=== PATIENT | male | born 1940 | race Caucasian/White ===

== ENCOUNTER 2018-11-11 16:49 | Outpatient (CLI) | payer MEDICARE, OTHER ==
--- NOTE | 2018-11-12 15:36 | Ultrasound Report ---
Reason: URGENCY OF URINATION Procedure Date: 11/11/2018 Accession Number: [id number] / [id number] Procedure: US - Bladder CPT Code: FULL RESULT: EXAM: PELVIS ULTRASOUND, LIMITED EXAM DATE: 11/11/2018 05:17 PM. CLINICAL HISTORY: URGENCY OF URINATION. COMPARISON: None. TECHNIQUE: Real-time scanning was performed with static images obtained. Region of interest: Urinary bladder. FINDINGS: Mildly distended urinary bladder. Bladder contour is grossly unremarkable. Prevoid bladder volume is 89 cc. Postvoid bladder volume is 46 cc. Prostate gland measures 32 x 32 x 37 mm (20 cc). IMPRESSION: 1. Small volume post void bladder residual. RADIA
== END 2018-11-11 16:50 | disposition home or self-care (01) ==
LOC: DI 16:49
PROVIDERS: ATTEND Internal Medicine
DX: R39.15 Urgency of urination (principal)
CPT/HCPCS: 76857

== ENCOUNTER 2022-06-14 19:54 | Emergency (ER) | payer MEDICARE, OTHER ==
[2022-06-14 20:17] VITALS: BP 152/74
== END 2022-06-14 21:16 | disposition left against medical advice (07) ==
LOC: ED 19:54
DX: Z53.21 Procedure and treatment not carried out due to patient leaving prior to being seen by health care provider (principal)
CPT/HCPCS: 99281

== ENCOUNTER 2023-11-14 07:42 | Outpatient (CLI) | payer MEDICARE, OTHER ==
[~2023-11-14 07:42] MED LIST: GADOTERATE MEGLUMINE 10 MMOL/20 ML VIAL ONE
--- NOTE | 2023-11-14 14:31 | MRI Report ---
PROCEDURE: PELVIS W/WO INDICATIONS: RISING PSA CONTRAST: Not listed. TECHNIQUE: Coronal ultra fast SE, axial T1 FSE with fat saturation, 3-plane nonbreath-hold T2 FSE. After the ad ministration of contrast, dynamic axial, delayed axial and coronal ultra fast GE or 2-D spoiled GE wi th fat saturation through the pelvis. Optional diffusion weighted imaging and ADC may be performed. COMPARISON: None. FINDINGS: Image quality: Diffusion weighted and dynamic contrast enhanced images are diagnostic. Prostate: Gland size is 5.4 x 4.9 x 4.5 cm; ellipsoid gland volume is 62 mL. Prostate lesions: Lesion 1: Location: Anterior transition zone of the base to mid gland, on axial series 5, image 7 and sagittal series 7, image 12. Size: 2.2 x 1.5 cm. T2W signal: Hypointense, nonencapsulated DWI signal: Markedly hyperintense ADC signal: Markedly hypointense Enhancement: Yes Extracapsular extension: Broad-based capsular contact with probable extension into the anterior fibro muscular stroma. No neurovascular involvement. PI-RADS score: 5 Lesion 2: Location: Right posterior transition zone, mid gland to apex, on axial series 5, image 10 and coronal series 6, image 12. Size: 1.5 x 1.3 cm. T2W signal: Hypointense, partially encapsulated DWI signal: Markedly hyperintense ADC signal: Markedly hypointense Enhancement: Yes Extracapsular extension: No. No neurovascular involvement. PI-RADS score: 3 Genitourinary system: Bladder wall thickness is normal. Distal ureters are non distended. Bowel and peritoneum: No pathologic free pelvic fluid. Inferior colon and small bowel loops are nor mal in caliber. Colonic diverticulosis without evidence of diverticulitis. Nodes and vessels: No pelvic or inguinal adenopathy by size criteria. Iliac vessels are normal in c aliber. Soft tissues: Small inguinal hernias containing fat. Bones: Bone marrow demonstrates normal overall signal. No suspicious bony lesions. IMPRESSION: 2 suspicious PI-RADS, as above. No pelvic adenopathy or aggressive osseous abnormality. Reviewed by: Lemuel Oliveira MD on 11/14/2023 2:30 PM PST Approved by: Lemuel Oliviera MD on 11/14/2023 2:30 PM PST Station ID: [id number]
[2023-11-14] MEDS ORDERED: GADOTERATE MEGLUMINE 10 MMOL/20 ML VIAL IVP ONE (16:48)
== END 2023-11-14 07:43 | disposition home or self-care (01) ==
LOC: LAB 07:42
PROVIDERS: ATTEND Urology
DX: R97.20 Elevated prostate specific antigen [PSA] (principal); N42.89 Other specified disorders of prostate
CPT/HCPCS: 36415; 72197; 82565; A9575

== ENCOUNTER 2024-05-28 10:18 | Outpatient (CLI) | payer MEDICARE, OTHER | END 2024-05-28 10:19 | disposition home or self-care (01) | LOC: LAB 10:18 | PROVIDERS: ATTEND Urology | DX: R97.20 Elevated prostate specific antigen [PSA] (principal) | CPT/HCPCS: 36415; 84153 ==